=== PATIENT | male | born 1965 | race Two or more races ===

== ENCOUNTER 2018-07-05 18:28 | Inpatient (IN) | payer MEDICAID, OTHER ==
[~2018-07-05] VITALS: Ht 167.6 cm; Wt 78.5 kg
[~2018-07-05 18:28] MED LIST: ACET30TA15; IBU800T
[2018-07-05] MEDS ORDERED: SODIUM CHLORIDE 0.9% 1,000 ML IVB ONE (19:03)
[2018-07-05] MEDS ORDERED: MORPHINE SULFATE 4 MG/ML SYR/VIAL IV ONE (19:15)
[2018-07-05] MEDS ORDERED: ONDANSETRON HCL 4 MG/2 ML VIAL IV ONE (19:15)
[2018-07-05 19:35] LABS: Red Blood Cells 1.78 10^6/uL (4.5-5.90)
[2018-07-05 19:37] LABS: Hematocrit 18.2 % (41.0-53.0); Mean Corpuscular Hgb Conc. 35.1 g/dL (32.0-36.0); Mean Corpuscular Volume 102.6 fL (80.0-100.0); Red Cell Distribution Width 16.9 % (11.8-14.3); White Blood Cell 2.2 10^3/uL (4.4-10.8)
[2018-07-05 19:44] LABS: Alanine Aminotransferase 26 U/L (16-61); Albumin 3.1 g/dL (3.4-5.0); Anion Gap 9 (5-15); Aspartate Aminotransferase 18 U/L (15-37); BUN/Creatinine Ratio 13.1; Blood Urea Nitrogen 11 mg/dL (7-18); Calcium 8.3 mg/dL (8.5-10.1); Carbon Dioxide 24 mmol/L (21-32); Chloride 104 mmol/L (98-107); GFR African American 122 mL/min; GFR Non-African American 101 mL/min; Glucose 168 mg/dL (74-106); Magnesium 1.9 mg/dL (1.6-2.6); Potassium 3.8 mmol/L (3.5-5.1); Sodium 137 mmol/L (136-145)
[2018-07-05 19:49] LABS: Alkaline Phosphatase 77 U/L (45-117); Bilirubin, Total 0.4 mg/dL (0.2-1.0); Hemoglobin 6.4 g/dL (13.5-17.5); Platelet Count (auto) 12 10^3/uL (140-450); Total Protein 7.4 g/dL (6.4-8.2)
[2018-07-05 19:50] LABS: Band Neutrophils % (manual) 0; Basophils % (manual) 0 (0.0-2.0); Blast Cells 0; Eosinophils % (manual) 0 (0-7); Metamyelocytes % 0; Myelocytes % 0; Promyelocytes % 0; Reactive Lymphocytes 0
[2018-07-05 20:10] LABS: Lymphocytes % (manual) 71 (10.0-50.0); Monocytes % (manual) 5 (0-12)
[2018-07-05] MEDS ORDERED: ACETAMINOPHEN 325 MG TAB PO PRN (21:15)
[2018-07-05] MEDS ORDERED: NITROGLYCERIN 0.4 MG SL TAB SL PRN (21:15)
[2018-07-05] MEDS ORDERED: MORPHINE SULF INJ 2 MG/ML SYRINGE 1ML IV PRN (21:15)
[2018-07-05] MEDS ORDERED: HYDROcodone-ACET 5/325MG TAB PO PRN (21:15)
[2018-07-05] MEDS ORDERED: ONDANSETRON HCL 4 MG/2 ML VIAL IV PRN (21:15)
[2018-07-05] MEDS ORDERED: TEMAZEPAM 15 MG CAP PO PRN (21:15)
[2018-07-05] MEDS ORDERED: DEXTROSE (50%) 50ML SYRG IV PRN (21:15)
[2018-07-05 22:25] LABS: Urine WBC None Seen /hpf (0 - 3)
[2018-07-05] MEDS: FAMOTIDINE 20 MG TAB PO SCH (22:25)
[2018-07-05 22:55] LABS: Urine Bacteria NONE SEEN /hpf (None Seen); Urine Blood Negative /uL (Negative)
--- NOTE | 2018-07-05 23:00 | NUR ---
Telemetry admit from ER SIMI SAMUELS admitted to Telemetry unit. Patient oriented to Genie Medrano, primary RN, unit, room, bed, and unit policies regarding patient care and visiting hours. Patient now on continuous telemetry monitoring, tele box # [id number] and telemetry reading on arrival to unit is SR 90s . Patient's vs taken and recorded, weighed by bedscale and encouraged to call if they need something, call light within reach. POC reviewed with pt and pt's daughter. All questions and concerns addressed, both verbalized understanding. Side rails up x2, bed in lowest locked position, non skid socks on. Continue care. Note:
[2018-07-05] MEDS ORDERED: HALOPERIDOL LACTATE 5 MG/ML INJ VIAL IM ONE (23:15)
[2018-07-05 23:30] VITALS: BP 109/59
[2018-07-06] VITALS (15 sets, daily range): BP systolic 92–122; BP diastolic 46–73
--- NOTE | 2018-07-06 00:25 | NUR ---
PRBC STARTED, WILL MONITOR PT.
[2018-07-06] MEDS ORDERED: IBU600T PO (00:29)
[2018-07-06] MEDS ORDERED: HYDR1TAB97 PO (00:29)
[2018-07-06] MEDS: InsuLIN REG 1unit/0.01ml Soln (100units/ml) SC SCH ×4 (01:00→17:30)
[2018-07-06] MEDS: ACCU-CHEK COMFORT CURVE STRIP VI SCH ×4 (01:18→17:30)
--- NOTE | 2018-07-06 03:00 | NUR ---
PRBC DONE TRANSFUSING, NO REACTION NOTED. CONTINUE CARE.
--- NOTE | 2018-07-06 04:15 | NUR ---
PLT SPOKE TO CLAUDIA FROM LAB REGARDING PLT TYPE, PER CLAUDIA, PLTS ARE NON SPECIFIC.
--- NOTE | 2018-07-06 04:17 | NUR ---
PLT STARTED, WILL MONITOR PT.
--- NOTE | 2018-07-06 05:37 | NUR ---
AM LABS SPOKE TO ON SITE NURSE, HE MAY AM LABS ALREADY. CALLED LAB TO DISREGARD AM DRAW DUE TO PLT RUNNING AT THIS TIME. WILL CALL LAB ONCE TRANSFUSION IS COMPLETE FOR AM LAB DRAWS.
--- NOTE | 2018-07-06 05:49 | NUR ---
PT REFUSING INSULIN COVERAGE EXPLAINED TO PT, STILL REFUSING. PER PT, HE TAKES ONLY METFORMIN AT HOME. CONTINUE CARE.
--- NOTE | 2018-07-06 06:25 | NUR ---
PLT DONE TRANSFUSING NO REACTIONS NOTED. WILL ENDORSE TO DAY RN REGARDING CBC AND 1 HR POST TRANSFUSION VS TO BE DONE AT 0725. PT RESTING COMFORTABLY AT THIS TIME.
[2018-07-06 06:37] LABS: Calcium 7.5 mg/dL (8.5-10.1); Potassium 4.1 mmol/L (3.5-5.1)
[2018-07-06 06:42] LABS: Albumin 2.6 g/dL (3.4-5.0); BUN/Creatinine Ratio 14.6; Bilirubin, Total 0.6 mg/dL (0.2-1.0); Total Protein 6.4 g/dL (6.4-8.2)
--- NOTE | 2018-07-06 07:50 | NUR ---
Patient sitting in bed, awake, oriented x4. No acute distress noted.
[2018-07-06] MEDS: FAMOTIDINE 20 MG TAB PO SCH ×2 (09:53→22:23)
[2018-07-06 10:08] LABS: Platelet Count (auto) 21 10^3/uL (140-450)
[2018-07-06 10:10] LABS: Hematocrit 17.8 % (41.0-53.0); Mean Corpuscular Hemoglobin 34.8 pg (28.0-32.0); Mean Corpuscular Volume 99.3 fL (80.0-100.0); Red Blood Cells 1.79 10^6/uL (4.5-5.90); Red Cell Distribution Width 16.9 % (11.8-14.3)
[2018-07-06 10:31] LABS: White Blood Cell 1.9 10^3/uL (4.4-10.8)
[2018-07-06 10:35] LABS: Hemoglobin 6.2 g/dL (13.5-17.5)
[2018-07-06 10:36] LABS: Band Neutrophils % (manual) 0; Basophils % (manual) 0 (0.0-2.0); Blast Cells 0; Eosinophils % (manual) 0 (0-7); Metamyelocytes % 0; Myelocytes % 0; Promyelocytes % 0; Reactive Lymphocytes 0
--- NOTE | 2018-07-06 10:44 | NUR ---
Hemoglobin = 6.2*L as per Laboratory.
--- NOTE | 2018-07-06 10:46 | NUR ---
Paged Dr. Ley.
--- NOTE | 2018-07-06 10:47 | NUR ---
Dr. Ley called back. made aware patient latest Hgb = 6.2*L.
--- NOTE | 2018-07-06 11:42 | NUR ---
Accu check = 147 mg/dl. Patient refused Insulin R.
--- NOTE | 2018-07-06 11:43 | NUR ---
Dr. Ley came over to see the patient. put in new orders. Dr. Ley made aware patient refused Insulin R, patient stated he takes Metformin at home.
[2018-07-06 12:02] LABS: Lymphocytes % (manual) 76 (10.0-50.0); Monocytes % (manual) 8 (0-12)
--- NOTE | 2018-07-06 12:14 | NUR ---
Urine specimen sent to Laboratory.
[2018-07-06] MEDS ORDERED: IOHEXOL 300 MG/ML 100ML BOTTLE IJ ONE (12:28)
[2018-07-06] MEDS ORDERED: GASTROGRAFIN 30 ML SOL ONE (12:28)
--- NOTE | 2018-07-06 12:44 | NUR ---
Bone marrow biopsy tomorrow, , 07/07/2018 at [address] Barahona.
--- NOTE | 2018-07-06 12:44 | NUR ---
Dr. Barahona came over. ordered Pulmonary biopsy for tomorrow at 11:00 am. Addendum: 07/06/18 at 1707 by Malinda Blackwell RN Bone marrow biopsy
[2018-07-06 12:47] LABS: INR 1.03 (0.9-1.15); Partial Thromboplastin Time 26.5 sec (23.64-32.05); Prothrombin Time 11.1 sec (9.06-12.60)
[2018-07-06 12:53] LABS: Alcohol, Urine < 3.0 mg/dL (0-5); Amphetamine Screen, Urine NEGATIVE (NEGATIVE); Barbiturate Scree,Urine NEGATIVE (NEGATIVE); Benzodiazephine Screen, Urine NEGATIVE (NEGATIVE); Cannabinoid Screen, Urine NEGATIVE (NEGATIVE); Cocaine Screen, Urine NEGATIVE (NEGATIVE); Opiate Scree,Urine POSITIVE (NEGATIVE); Phencyclidine Screen, Urine NEGATIVE (NEGATIVE)
[2018-07-06 13:03] LABS: % Iron Saturation 70.3 % (20-55)
[2018-07-06] MEDS: methylPREDNISolone SOD SUCC 125 MG/2 ML VL IV SCH ×2 (13:28→17:32)
[2018-07-06 13:29] LABS: Ferritin 1023.4 ng/mL (10-322); Folate (Folic Acid) 13.17 ng/mL (5.38-24)
--- NOTE | 2018-07-06 16:57 | NUR ---
Blood transfusion (Packed RBCs) started. T = 98.5 F, P = 83, RR = 18, BP = 120/71, O2 Sat = 96% on room air.
--- NOTE | 2018-07-06 17:30 | NUR ---
Accu check = 258 mg/dl. Patient refused Insulin R. Solu Medrol IV held. Patient on blood transfusion.
--- NOTE | 2018-07-06 18:00 | NUR ---
Ongoing blood transfusion (Packed RBCs). No reaction noted. Patient eating dinner at this time.
--- NOTE | 2018-07-06 19:00 | NUR ---
Bone Marrow Biopsy Kit placed at the Non-fridge IV bin in the Medication Room.
--- NOTE | 2018-07-06 19:05 | NUR ---
Patient with on going blood transfusion, to be followed by the 2nd unit of Packed RBCs, and Platelet 1 unit as ordered.
--- NOTE | 2018-07-06 19:55 | NUR ---
Opening Shift Note Assumed care of patient, awake and alert. No S/S of distress/SOB or pain. First unit of PRBC completed. No blood transfusion reaction noted. Patient instructed to call for any possible blood transfusion reaction including but not limited to rash, itching, back pain, feeling warm, or any other symptoms. Patient verbalized understanding. Instructed on POC and to call for assist PRN, will continue to monitor for changes Q1hr and PRN.
--- NOTE | 2018-07-06 20:21 | NUR ---
Started to transfuse second unit of PRBC after verification with another RN. Patient instructed to call for any possible blood transfusion reaction including, but not limited to rash, itching, back pain, feeling warm, or any other symptoms. Patient verbalized understanding. Care continued.
--- NOTE | 2018-07-06 23:19 | NUR ---
Second unit of PRBC completed. No blood transfusion reaction noted. Care continued.
--- NOTE | 2018-07-06 23:26 | NUR ---
Started to transfuse platelet after verification with another RN, and after initial vital signs taken. Patient instructed to call for any possible blood transfusion reaction including, but not limited to rash, itching, back pain, feeling warm, or any other symptoms. Patient verbalized understanding. Care continued.
[2018-07-07] VITALS (8 sets, daily range): BP systolic 102–136; BP diastolic 61–81
[2018-07-07] MEDS: InsuLIN REG 1unit/0.01ml Soln (100units/ml) SC SCH ×5 (00:18→20:08)
[2018-07-07] MEDS: ACCU-CHEK COMFORT CURVE STRIP VI SCH ×5 (00:18→20:08)
[2018-07-07] MEDS: methylPREDNISolone SOD SUCC 125 MG/2 ML VL IV SCH ×4 (00:18→18:00)
--- NOTE | 2018-07-07 02:10 | NUR ---
Platelet transfusion completed. Patient tolerated procedure well. No blood transfusion reaction noted. Care continued.
[2018-07-07 04:57] LABS: Platelet Count (auto) 62 10^3/uL (140-450); White Blood Cell 2.1 10^3/uL (4.4-10.8)
[2018-07-07 04:59] LABS: Hematocrit 24.7 % (41.0-53.0); Hemoglobin 8.7 g/dL (13.5-17.5); Mean Corpuscular Hgb Conc. 35.2 g/dL (32.0-36.0); Red Blood Cells 2.63 10^6/uL (4.5-5.90); Red Cell Distribution Width 19.7 % (11.8-14.3)
[2018-07-07 05:12] LABS: Basophils % (manual) 0 (0.0-2.0); Eosinophils % (manual) 0 (0-7); Promyelocytes % 0; Reactive Lymphocytes 0
--- NOTE | 2018-07-07 07:00 | NUR ---
Opening Shift Note Assumed care of patient, awake, alert, and oriented x4. No S/S of distress/SOB, but patient reports generalized pain of 4/10. IV in left AC 18 gauge asymptomatic intact, patent, and saline locked. Bed locked and in lowest position and call light is within reach. Instructed on POC and to call for assist PRN, and patient verbalized understanding. Will continue to monitor for changes Q1hr and PRN.
[2018-07-07 09:40] LABS: Band Neutrophils % (manual) 3; Blast Cells 3; Lymphocytes % (manual) 58 (10.0-50.0); Metamyelocytes % 2; Monocytes % (manual) 3 (0-12); Myelocytes % 6
[2018-07-07] MEDS: FAMOTIDINE 20 MG TAB PO SCH ×2 (09:51→21:27)
--- NOTE | 2018-07-07 10:00 | NUR ---
Dr. Ley at bedside. New orders received.
--- NOTE | 2018-07-07 10:30 | NUR ---
Patient taken via wheelchair for hide-a-scan. No distress noted at time of departure.
--- NOTE | 2018-07-07 11:00 | NUR ---
[facility]. No distress noted at time of arrival.
[2018-07-07] MEDS ORDERED: LIDOCAINE 2% (LOCAL ANESTH.) PF 5ml SDV ONE (12:28)
--- NOTE | 2018-07-07 12:30 | NUR ---
Dr. Sharma, Lapel Padder Blindstitch, at bedside to perform Bone Marrow Biopsy. Patient tolerated well. No distress noted at time of the procedure. Will continue to monitor patient Q1.
[2018-07-07] MEDS ORDERED: MULTIPLE VITAMINS W/ MINERALS TAB PO ONE (15:45)
--- NOTE | 2018-07-07 18:10 | NUR ---
Glucose 418 Patient has blood sugar reading of 418. Paged the hospitalist. Dr. Snow, Hospitalist, returned page immediately with new orders. Will continue to monitor patient blood sugar and will recheck in 30 minutes after insulin administration.
[2018-07-07] MEDS ORDERED: InsuLIN REG 1unit/0.01ml Soln (100units/ml) IV ONE (18:15)
--- NOTE | 2018-07-07 18:47 | NUR ---
Glucose re-check 371
[2018-07-07] MEDS ORDERED: DEXTROSE (50%) 50ML SYRG IV PRN (19:00)
--- NOTE | 2018-07-07 20:00 | NUR ---
RECEIVED PT IN BED, A/O X4, IN NO ACUTE DISTRESS, DENIES PAIN. POC REVIEWED, VERBALIZED UNDERSTANDING, AWARE HE WILL BE NPO P MN FOR STRESS TEST IN AM. CALL LIGHT WITHIN REACH, ENCOURAGED TO CALL IF HELP IS NEEDED. SIDE RAILS UPX2, BED IN LOWEST LOCKED POSITION, NON SKID SOCKS ON. CONTINUE CARE.
[2018-07-07] MEDS: INSULIN LANTUS (GLARGINE) 1 /0.01ml (100units/ml) SC SCH (20:09)
--- NOTE | 2018-07-07 21:14 | NUR ---
IV insertion IV access obtained, via clean sterile technique by inserting 20 gauge catheter at R FA after 1 attempt(s)BY TERRI GAMEZ. IV secured properly. No trauma to site. Patient tolerated well. NOTE:
[2018-07-07] MEDS ORDERED: INSULIN LANTUS (GLARGINE) 1 /0.01ml (100units/ml) SC SCH (22:00)
[2018-07-08] MEDS: methylPREDNISolone SOD SUCC 125 MG/2 ML VL IV SCH ×4 (00:02→18:00)
[2018-07-08] MEDS: InsuLIN REG 1unit/0.01ml Soln (100units/ml) SC SCH ×5 (00:02→16:00)
[2018-07-08] MEDS: ACCU-CHEK COMFORT CURVE STRIP VI SCH ×5 (00:02→16:00)
[2018-07-08 04:02] VITALS: BP 114/71
[2018-07-08 05:19] LABS: Mean Corpuscular Volume 94.4 fL (80.0-100.0); White Blood Cell 2.9 10^3/uL (4.4-10.8)
[2018-07-08 05:21] LABS: Hematocrit 25.7 % (41.0-53.0); Mean Corpuscular Hemoglobin 32.9 pg (28.0-32.0); Mean Corpuscular Hgb Conc. 34.8 g/dL (32.0-36.0); Platelet Count (auto) 50 10^3/uL (140-450); Red Blood Cells 2.73 10^6/uL (4.5-5.90); Red Cell Distribution Width 19.3 % (11.8-14.3)
[2018-07-08 05:29] LABS: Basophils % (manual) 0 (0.0-2.0); Eosinophils % (manual) 0 (0-7); Metamyelocytes % 0; Myelocytes % 0; Promyelocytes % 0; Reactive Lymphocytes 0
--- NOTE | 2018-07-08 07:00 | NUR ---
Opening Shift Note Assumed care of patient, awake, alert, and oriented x4. No S/S of distress/SOB or pain. IV in left AC 18 gauge asymptomatic, intact, patent, and saline locked. IV in right forearm 20 gauge asymtomatic, intact, patent, and saline locked. Bed locked and in lowest position and call light is within reach. Instructed on POC and to call for assist PRN, and patient verbalized understanding. Will continue to monitor for changes Q1hr and PRN.
[2018-07-08 07:02] LABS: Band Neutrophils % (manual) 5; Blast Cells 3; Lymphocytes % (manual) 45 (10.0-50.0); Monocytes % (manual) 8 (0-12)
[2018-07-08] MEDS ORDERED: ADENOSINE 66 MG in GIVE UN-DILUTED 0 ML IV STA (08:28)
[2018-07-08 08:30] VITALS: BP 123/68
--- NOTE | 2018-07-08 08:30 | NUR ---
Patient taken down to stress lab via wheelchair. No distress noted at time of departure.
--- NOTE | 2018-07-08 09:30 | NUR ---
Patient returned from stress lab via wheelchair. No distress noted at time of arrival. Will continue to monitor patient Q1.
[2018-07-08] MEDS ORDERED: MULTIPLE VITAMINS W/ MINERALS TAB PO SCH (10:00)
--- NOTE | 2018-07-08 10:14 | NUR ---
Dr. Ley at bedside. New orders received.
[2018-07-08] MEDS: FAMOTIDINE 20 MG TAB PO SCH (10:16)
[2018-07-08] MEDS: INSULIN LANTUS (GLARGINE) 1 /0.01ml (100units/ml) SC SCH (10:16)
[2018-07-08] MEDS ORDERED: metFORMIN HYDROCHLORIDE 500 MG TAB PO ONE (10:30)
[2018-07-08] MEDS ORDERED: glipiZIDE 5 MG TAB PO ONE (10:30)
[2018-07-08] MEDS ORDERED: GLIP-115 PO (11:02)
[2018-07-08] MEDS ORDERED: PANT40TA2 PO (11:02)
[2018-07-08] MEDS ORDERED: METF500T PO (11:02)
[2018-07-08] MEDS ORDERED: PRE5T PO (11:02)
[2018-07-08 12:51] VITALS: BP 117/72
--- NOTE | 2018-07-08 15:00 | NUR ---
Dr. Chandler, Equipment Maintenance Tech, cleared patient for discharge.
[2018-07-08 16:44] VITALS: BP 117/72
[2018-07-08 16:53] VITALS: BP 116/69
[2018-07-08] MEDS ORDERED: metFORMIN HYDROCHLORIDE 500 MG TAB PO SCH (18:00)
--- NOTE | 2018-07-08 18:31 | NUR ---
Discharge instructions given as ordered. Encourage to follow up with PMD as instructed. All questions and concerns addressed. Patient verbalized understanding. Medication reconciliation form completed and copy given to patient. IV removed with catheter intact, pressure dressing applied. Telemetry unit returned to [facility]. Patient taken to vehicle via wheelchair with all personal belongings, accompanied by staff and family member. No distress noted at time of departure.
[2018-07-09] MEDS ORDERED: glipiZIDE 5 MG TAB PO SCH (07:00)
== END 2018-07-08 18:00 | disposition home or self-care (01) | DRG 803 ==
LOC: EDBD 18:28 → ER 18:48 → TELE 21:15 → TELE-WESTW 23:00
PROVIDERS: ADMIT Nurse Practitioner; ATTEND Internal Medicine
PROC: 30233R1 Transfusion of Nonautologous Platelets into Peripheral Vein, Percutaneous Approach (ICD-10-PCS; 2018-07-06)
PROC: 30233N1 Transfusion of Nonautologous Red Blood Cells into Peripheral Vein, Percutaneous Approach (ICD-10-PCS; 2018-07-06)
PROC: 07DR3ZX Extraction of Iliac Bone Marrow, Percutaneous Approach, Diagnostic (ICD-10-PCS; principal; 2018-07-07)
PROC: 0QB33ZX Excision of Left Pelvic Bone, Percutaneous Approach, Diagnostic (ICD-10-PCS; 2018-07-07)
DX: D61.818 Other pancytopenia (principal); E44.0 Moderate protein-calorie malnutrition; E11.9 Type 2 diabetes mellitus without complications; E78.00 Pure hypercholesterolemia, unspecified; M54.5 Low back pain; F10.10 Alcohol abuse, uncomplicated; G89.29 Other chronic pain; E78.5 Hyperlipidemia, unspecified; I10 Essential (primary) hypertension; Z82.49 Family history of ischemic heart disease and other diseases of the circulatory system; Z83.3 Family history of diabetes mellitus; Z68.27 Body mass index [BMI] 27.0-27.9, adult; Z79.84 Long term (current) use of oral hypoglycemic drugs; Z79.899 Other long term (current) drug therapy; Z80.9 Family history of malignant neoplasm, unspecified
CPT/HCPCS: 36415; 71045; 72131; 74177; 78226; 78452; 80053; 80307; 81001; 82270; 82607; 82728; 82746; 82962; 83010; 83036; 83540; 83550; 83615; 83735; 84484; 85007; 85027; 85610; 85730; 86850; 86880; 86900; 86901; 86920; 93005; 93017; 93306; 94761; 99291; G0378; J0153; J1815; J2001; J2405

== ENCOUNTER 2018-09-06 16:16 | Emergency (ER) | payer MEDICAID ==
[~2018-09-06] VITALS: Ht 165.1 cm; Wt 72.1 kg
[~2018-09-06 16:16] MED LIST changes: -ACET30TA15; +GLIP5TAB12 PO; -IBU800T; +METF500T PO; +PANT40TA2 PO
[2018-09-06 18:07] LABS: Hemoglobin 9.1 g/dL (13.5-17.5); Red Blood Cells 3.08 10^6/uL (4.5-5.90)
[2018-09-06 18:08] LABS: Calcium 8.3 mg/dL (8.5-10.1); Potassium 4.1 mmol/L (3.5-5.1)
[2018-09-06 18:11] LABS: BUN/Creatinine Ratio 20.2; Bilirubin, Total 0.2 mg/dL (0.2-1.0); Hematocrit 25.6 % (41.0-53.0); Mean Corpuscular Hemoglobin 29.5 pg (28.0-32.0); Mean Corpuscular Hgb Conc. 35.5 g/dL (32.0-36.0); Mean Corpuscular Volume 83.2 fL (80.0-100.0); Red Cell Distribution Width 14.2 % (11.8-14.3); Total Protein 6.9 g/dL (6.4-8.2)
[2018-09-06 18:49] LABS: INR < 0.93 (0.9-1.15); Partial Thromboplastin Time 26.9 sec (23.64-32.05)
[2018-09-06 19:08] LABS: Band Neutrophils % (manual) 0; Basophils % (manual) 0 (0.0-2.0); Blast Cells 0; Eosinophils % (manual) 0 (0-7); Metamyelocytes % 0; Myelocytes % 0; Platelet Count (auto) 5 10^3/uL (140-450); Promyelocytes % 0; Reactive Lymphocytes 0; White Blood Cell 1.3 10^3/uL (4.4-10.8)
[2018-09-06 19:09] LABS: Lymphocytes % (manual) 73 (10.0-50.0); Monocytes % (manual) 3 (0-12)
[2018-09-06] MEDS ORDERED: ONDANSETRON HCL 4 MG/2 ML VIAL IV PRN (20:30)
[2018-09-06] MEDS ORDERED: ACETAMINOPHEN 325 MG TAB PO PRN (20:30)
[2018-09-06] MEDS ORDERED: FILGRASTIM(TBO) 480 MCG/0.8 ML SYRG SC ONE (20:30)
[2018-09-06] MEDS ORDERED: TEMAZEPAM 15 MG CAP PO PRN (20:30)
[2018-09-06] MEDS ORDERED: FAMOTIDINE 20 MG TAB PO SCH (22:00)
[2018-09-06 22:02] VITALS: BP 106/44
[2018-09-06 22:25] VITALS: BP 101/60
[2018-09-07 00:15] VITALS: BP 99/55
[2018-09-07 00:54] VITALS: BP 89/46
[2018-09-07 01:13] VITALS: BP 95/59
[2018-09-07 03:00] VITALS: BP 98/54
[2018-09-07 03:25] LABS: Basophils # (auto) 0 uL; Eosinophils # (auto) 0 uL; Hematocrit 23.9 % (41.0-53.0); Lymphocytes # (auto) 0.6 uL; Monocytes # (auto) 0 uL; Neutrophils # (auto) 0.3 uL
[2018-09-07 03:26] LABS: Basophils % (auto) 2.1 % (0.0-2.0); Eosinophils % (auto) 2.4 % (0.0-7.0); Hemoglobin 8.3 g/dL (13.5-17.5); Mean Corpuscular Hemoglobin 28.9 pg (28.0-32.0); Mean Corpuscular Hgb Conc. 34.8 g/dL (32.0-36.0); Mean Corpuscular Volume 83.1 fL (80.0-100.0); Monocytes % (auto) 1.4 % (0.0-12.0); Neutrophils % (auto) 33.4 % (37.0-80.0); Nucleated Red Blood Cells % 0.2 %; Platelet Count (auto) 51 10^3/uL (140-450); Red Blood Cells 2.87 10^6/uL (4.5-5.90)
[2018-09-07 03:37] LABS: Lymphocytes % (auto) 60.7 % (10.0-50.0)
== END 2018-09-07 04:09 | disposition home or self-care (01) ==
LOC: ER 16:19 → OVERFLOW 16:20 → UNDOADMIN 16:20 → ER 09-07 04:09
DX: D69.6 Thrombocytopenia, unspecified (principal); D72.819 Decreased white blood cell count, unspecified; D64.9 Anemia, unspecified; E11.9 Type 2 diabetes mellitus without complications; E78.5 Hyperlipidemia, unspecified; I10 Essential (primary) hypertension; Z79.84 Long term (current) use of oral hypoglycemic drugs
CPT/HCPCS: 36415; 36430; 80053; 85007; 85025; 85027; 85610; 85730; 86850; 86900; 86901; 96372; 99285; J1447; P9035

== ENCOUNTER 2018-09-29 16:54 | Inpatient (IN) | payer MEDICAID ==
[~2018-09-29] VITALS: Ht 165.1 cm; Wt 71.4 kg
[2018-09-29] MEDS ORDERED: ACETAMINOPHEN 325 MG TAB PO ONE (17:15)
[2018-09-29] MEDS ORDERED: SODIUM CHLORIDE 0.9% 500 ML IV ONE (18:05)
[2018-09-29 18:24] LABS: Basophils # (auto) 0 uL; Eosinophils # (auto) 0 uL; Hemoglobin 8.2 g/dL (13.5-17.5); Lymphocytes # (auto) 0.6 uL; Monocytes # (auto) 0 uL; Monocytes % (auto) 0.2 % (0.0-12.0); Neutrophils # (auto) 0 uL; Red Cell Distribution Width 13.4 % (11.8-14.3)
[2018-09-29 18:26] LABS: Mean Corpuscular Hemoglobin 29.1 pg (28.0-32.0); Mean Corpuscular Hgb Conc. 35.5 g/dL (32.0-36.0); Mean Corpuscular Volume 81.9 fL (80.0-100.0); Neutrophils % (auto) 1.5 % (37.0-80.0); Platelet Count (auto) 56 10^3/uL (140-450); Red Blood Cells 2.81 10^6/uL (4.5-5.90)
[2018-09-29 18:42] LABS: Lymphocytes % (auto) 98.3 % (10.0-50.0)
[2018-09-29 18:43] LABS: White Blood Cell 0.7 10^3/uL (4.4-10.8)
[2018-09-29 18:45] LABS: Albumin 2.7 g/dL (3.4-5.0); BUN/Creatinine Ratio 14.1; Calcium 8.9 mg/dL (8.5-10.1)
[2018-09-29 18:47] LABS: Bilirubin, Total 0.3 mg/dL (0.2-1.0); Total Protein 7.4 g/dL (6.4-8.2)
[2018-09-29 20:53] LABS: Urine Bacteria NONE SEEN /hpf (None Seen); Urine Blood Negative /uL (Negative); Urine Specific Gravity 1.014 (1.001-1.035); Urine WBC <1 /hpf (0 - 3)
[2018-09-29] MEDS ORDERED: ONDANSETRON HCL 4 MG/2 ML VIAL IV PRN (21:30)
[2018-09-29] MEDS ORDERED: HYDROcodone-ACET 5/325MG TAB PO PRN (21:30)
[2018-09-29] MEDS ORDERED: DEXTROSE (50%) 50ML SYRG IV PRN (21:30)
[2018-09-29] MEDS: DOCUSATE SOD 100 MG CAP PO SCH (22:05)
[2018-09-29] MEDS: ACCU-CHEK COMFORT CURVE STRIP VI SCH (22:09)
[2018-09-29] MEDS: InsuLIN REG 1unit/0.01ml Soln (100units/ml) SC SCH (22:18)
[2018-09-29 22:20] VITALS: BP 104/53
--- NOTE | 2018-09-29 22:25 | NUR ---
MS admit from ER Patient admitted to tele/MS and oriented to primary RN, unit, room, bed, and unit policies regarding patient care and visiting hours. Neutropenic precautions in place. Patient weighed by bedscale and encouraged to call if they need something. Bed is in lowest position and locked. Call light within reach. Board updated. All questions and concerns addressed, patient verbalized understanding.
[2018-09-29 22:30] VITALS: BP 104/53
[2018-09-30] MEDS ORDERED: LEVO500T21 PO (01:25)
[2018-09-30] MEDS ORDERED: DOCU100T15 PO (01:25)
[2018-09-30] MEDS ORDERED: PRO10T PO (01:25)
[2018-09-30] MEDS ORDERED: ALLO-52 PO (01:25)
[2018-09-30] MEDS ORDERED: FLUC200T50 PO (01:25)
[2018-09-30] MEDS ORDERED: OXYC325T14 PO (01:25)
[2018-09-30] MEDS ORDERED: HYDR-3682 PO (01:25)
[2018-09-30] MEDS ORDERED: [UNRECOGNIZED DRUG - CODE] IV (01:25)
[2018-09-30] MEDS: ACETAMINOPHEN 325 MG TAB PO PRN ×3 (04:12→21:26)
[2018-09-30 05:22] VITALS: BP 115/51
[2018-09-30 06:17] LABS: Basophils # (auto) 0 uL; Eosinophils # (auto) 0 uL; Hemoglobin 7.7 g/dL (13.5-17.5); Lymphocytes # (auto) 0.7 uL; Monocytes # (auto) 0 uL; Monocytes % (auto) 0.1 % (0.0-12.0); Neutrophils # (auto) 0 uL
[2018-09-30 06:19] LABS: Eosinophils % (auto) 0.1 % (0.0-7.0); Hematocrit 21.9 % (41.0-53.0); Mean Corpuscular Hemoglobin 28.8 pg (28.0-32.0); Mean Corpuscular Hgb Conc. 35.3 g/dL (32.0-36.0); Mean Corpuscular Volume 81.7 fL (80.0-100.0); Neutrophils % (auto) 0.7 % (37.0-80.0); Nucleated Red Blood Cells % 0.3 %; Platelet Count (auto) 48 10^3/uL (140-450); Red Blood Cells 2.68 10^6/uL (4.5-5.90); Red Cell Distribution Width 13.6 % (11.8-14.3)
[2018-09-30] MEDS: ACCU-CHEK COMFORT CURVE STRIP VI SCH ×4 (06:21→21:48)
[2018-09-30] MEDS: InsuLIN REG 1unit/0.01ml Soln (100units/ml) SC SCH ×4 (06:21→21:47)
[2018-09-30 06:26] LABS: BUN/Creatinine Ratio 13.3; Calcium 8.5 mg/dL (8.5-10.1); Potassium 3.8 mmol/L (3.5-5.1)
[2018-09-30 06:27] LABS: Lymphocytes % (auto) 99.1 % (10.0-50.0)
[2018-09-30 06:29] LABS: White Blood Cell 0.7 10^3/uL (4.4-10.8)
--- NOTE | 2018-09-30 07:30 | NUR ---
Opening Note Received report from mold shifter RN. Patient is resting in bed with eyes closed, easy to wake by calling name. Patient is on room air, respirations even and unlabored. Patient denies pain at this time. Reviewed plan of care with patient, patient verbalized understanding. Bed in low and locked position, call light within reach. Will continue to monitor Q1 hour and PRN.
[2018-09-30 09:00] VITALS: BP 102/62
[2018-09-30] MEDS: DOCUSATE SOD 100 MG CAP PO SCH ×2 (09:18→21:27)
[2018-09-30] MEDS: PANTOPRAZOLE 40 MG TAB PO SCH (09:19)
[2018-09-30] MEDS ORDERED: ACYCLOVIR 400 MG TAB PO SCH (10:00)
[2018-09-30] MEDS ORDERED: VANCOMYCIN PER PHARMACY 0 MG IV SCH (10:00)
[2018-09-30] MEDS ORDERED: FLUCONAZOLE 100 MG TAB PO SCH (10:00)
[2018-09-30] MEDS ORDERED: LEVOFLOXACIN 500 MG TAB PO SCH (10:00)
[2018-09-30] MEDS ORDERED: VANCOMYCIN 1GM/250ML 250 ML IV ONE (10:15)
--- NOTE | 2018-09-30 12:04 | NUR ---
Dr. Donnelly at bedside Reviewing plan of care with patient.
--- NOTE | 2018-09-30 12:33 | NUR ---
Temperature patient temperature 100.2, will medicate with PRN Tylenol as ordered. Will continue to monitor Q1 hour and PRN.
[2018-09-30] MEDS: SODIUM CHLORIDE 0.9% 1,000 ML IV SCH (12:42)
[2018-09-30] MEDS: PIPERACILLIN-TAZO 4.5GM 100 ML IV SCH ×2 (12:42→17:56)
[2018-09-30 13:00] VITALS: BP 100/67
[2018-09-30] MEDS ORDERED: FILGRASTIM(TBO) 480 MCG/0.8 ML SYRG SC ONE (13:30)
[2018-09-30 17:00] VITALS: BP 114/63
--- NOTE | 2018-09-30 19:14 | NUR ---
Opening Shift Note Assumed care of patient, awake, alert, and oriented x4. No S/S of distress/SOB or pain. IV is in left forearm 20 gauge and is asymptomatic, intact, patent, and infusing normal saline at 75 mL/hour. Bed is locked and in lowest position and call light is within reach. Instructed on POC and to call for assist PRN, and patient verbalized understanding. Will continue to monitor for changes Q1hr and PRN.
--- NOTE | 2018-09-30 19:22 | NUR ---
Closing Note Report given to television repairer RN. No signs or symptoms of distress noted at this time.
--- NOTE | 2018-09-30 19:45 | NUR ---
Patient reports severe Benadryl allergy; red allergy band is on left wrist. No distress noted at this time. Will continue to monitor Q1.
[2018-09-30 21:20] VITALS: BP 101/56
--- NOTE | 2018-09-30 21:20 | NUR ---
AMERICAN HISTORY TEACHER reported patient has oral temperature of 102.7. Initiated cooling measures; placed ice packs underneath both arms, wet cloths on forehead and back of neck, and administered ordered Tylenol PO. Will continue to monitor temperature Q30 minutes.
[2018-09-30] MEDS: VANCOMYCIN 1GM/250ML 250 ML IV SCH (21:25)
--- NOTE | 2018-09-30 21:51 | NUR ---
Patient blood sugar is 193. Covered with 3 units Regular insulin SC.
--- NOTE | 2018-09-30 22:25 | NUR ---
Oral temperature at 101.4. Will reassess in 30 minutes.
--- NOTE | 2018-09-30 22:47 | NUR ---
Oral temperature is 100.9.
[2018-10-01] MEDS: PIPERACILLIN-TAZO 4.5GM 100 ML IV SCH ×4 (00:28→17:30)
[2018-10-01] MEDS: SODIUM CHLORIDE 0.9% 1,000 ML IV SCH ×2 (01:35→14:55)
[2018-10-01] MEDS: ACETAMINOPHEN 325 MG TAB PO PRN ×3 (04:13→21:00)
[2018-10-01 05:16] VITALS: BP 105/42
[2018-10-01 05:29] LABS: Hemoglobin 7.8 g/dL (13.5-17.5)
[2018-10-01 05:32] LABS: Hematocrit 21.8 % (41.0-53.0); Mean Corpuscular Hemoglobin 29.3 pg (28.0-32.0); Mean Corpuscular Hgb Conc. 35.9 g/dL (32.0-36.0); Mean Corpuscular Volume 81.6 fL (80.0-100.0); Platelet Count (auto) 36 10^3/uL (140-450); Red Blood Cells 2.67 10^6/uL (4.5-5.90); Red Cell Distribution Width 13.5 % (11.8-14.3)
[2018-10-01 05:36] LABS: Potassium 3.6 mmol/L (3.5-5.1)
[2018-10-01 05:44] LABS: White Blood Cell 0.8 10^3/uL (4.4-10.8)
[2018-10-01 05:45] LABS: Albumin 2.5 g/dL (3.4-5.0); BUN/Creatinine Ratio 11.3; Bilirubin, Total 0.4 mg/dL (0.2-1.0); Calcium 8.8 mg/dL (8.5-10.1)
[2018-10-01 05:46] LABS: Basophils % (manual) 0 (0.0-2.0); Blast Cells 0; Eosinophils % (manual) 0 (0-7); Metamyelocytes % 0; Myelocytes % 0; Promyelocytes % 0
[2018-10-01 06:31] LABS: Band Neutrophils % (manual) 2; Lymphocytes % (manual) 90 (10.0-50.0); Monocytes % (manual) 2 (0-12); Reactive Lymphocytes 2
[2018-10-01] MEDS: InsuLIN REG 1unit/0.01ml Soln (100units/ml) SC SCH ×4 (06:38→22:16)
[2018-10-01] MEDS: ACCU-CHEK COMFORT CURVE STRIP VI SCH ×4 (06:38→22:16)
--- NOTE | 2018-10-01 07:34 | NUR ---
Temp Abundio The patient's temperature increased again to 102.7 when assess at 0400hrs. Gave the patient Tylenol and waited for an hour to reassess, temp decreased to 100.7. Began cooling measures to further lower the temp. Placed ice packs under the arm pits, after reassessing the temp decreased to 98.5. Will continue to monitor.
--- NOTE | 2018-10-01 07:45 | NUR ---
OPENING SHIFT NOTE PATIENT LAYING IN BED WITH EYES CLOSED CHEST RISE AND FALL VISUALIZED SHOWING NO S/S OF DISTRESS OR SOB. BOARD UPDATED. BED IN LOWEST LOCKED POSITION CALL LIGHT WITHIN REACH WILL CONTINUE TO MONITOR
[2018-10-01 09:00] VITALS: BP 107/57
[2018-10-01] MEDS: PANTOPRAZOLE 40 MG TAB PO SCH (09:20)
[2018-10-01] MEDS: DOCUSATE SOD 100 MG CAP PO SCH ×2 (09:20→22:16)
[2018-10-01] MEDS: ACYCLOVIR 400 MG TAB PO SCH (09:20)
[2018-10-01] MEDS: FILGRASTIM(TBO) 480 MCG/0.8 ML SYRG SC SCH (09:21)
[2018-10-01] MEDS: VANCOMYCIN 1GM/250ML 250 ML IV SCH ×2 (09:22→22:31)
[2018-10-01 13:00] VITALS: BP 101/59
[2018-10-01 16:56] VITALS: BP 115/62
--- NOTE | 2018-10-01 19:05 | NUR ---
END OF SHIFT NOTE PATIENT AWAKE ALERT AND ORIENTED X4 SITTING UP EATING. DENIES PAIN SOB OR ANY DISTRESS. BED IN LOWEST LOCKED POSITION CALL LIGHT WITHIN REACH. ENDORSE CARE TO NOC RN
--- NOTE | 2018-10-01 19:10 | NUR ---
Opening Shift Note Received report from Ayse GAMEZ. Assumed care of patient, awake and alert. No S/S of distress/SOB or pain. Instructed on POC and to call for assist PRN, will continue to monitor for changes Q1hr and PRN.
[2018-10-01 21:00] VITALS: BP 130/72
[2018-10-02] MEDS: PIPERACILLIN-TAZO 4.5GM 100 ML IV SCH ×4 (00:06→18:00)
[2018-10-02 04:30] VITALS: BP 100/52
[2018-10-02] MEDS: SODIUM CHLORIDE 0.9% 1,000 ML IV SCH ×2 (04:39→17:35)
[2018-10-02 05:16] LABS: Hemoglobin 7.6 g/dL (13.5-17.5); Platelet Count (auto) 25 10^3/uL (140-450); Red Cell Distribution Width 13.5 % (11.8-14.3)
[2018-10-02 05:22] LABS: Hematocrit 21.1 % (41.0-53.0); Mean Corpuscular Hemoglobin 29.1 pg (28.0-32.0); Mean Corpuscular Volume 80.8 fL (80.0-100.0); Red Blood Cells 2.61 10^6/uL (4.5-5.90)
[2018-10-02 05:35] LABS: White Blood Cell 0.7 10^3/uL (4.4-10.8)
[2018-10-02 05:36] LABS: Band Neutrophils % (manual) 0; Basophils % (manual) 0 (0.0-2.0); Blast Cells 0; Eosinophils % (manual) 0 (0-7); Metamyelocytes % 0; Myelocytes % 0; Promyelocytes % 0; Reactive Lymphocytes 0
[2018-10-02 05:46] LABS: BUN/Creatinine Ratio 10.8; Calcium 8.6 mg/dL (8.5-10.1); Magnesium 2.5 mg/dL (1.6-2.6); Potassium 3.7 mmol/L (3.5-5.1)
[2018-10-02] MEDS: ACETAMINOPHEN 325 MG TAB PO PRN (06:10)
[2018-10-02] MEDS: ACCU-CHEK COMFORT CURVE STRIP VI SCH ×4 (06:36→21:51)
[2018-10-02] MEDS: InsuLIN REG 1unit/0.01ml Soln (100units/ml) SC SCH ×4 (06:37→21:52)
--- NOTE | 2018-10-02 07:24 | NUR ---
Latest temp is 99.1. Endorsed care to Ayse GAMEZ.
--- NOTE | 2018-10-02 07:35 | NUR ---
OPENING SHIFT NOTE PATIENT LAYING IN BED WITH EYES CLOSED CHEST RISE AND FALL VISUALIZED SHOWING NO S/S OF DISTRESS OR SOB. ICE PACKS UNDERARMS AND COOL WASH CLOTH ON FOREHEAD. BOARD UPDATED. BED IN LOWEST LOCKED POSITION CALL LIGHT WITHIN REACH WILL CONTINUE TO MONITOR
[2018-10-02 08:51] LABS: Lymphocytes % (manual) 99 (10.0-50.0); Monocytes % (manual) 1 (0-12)
[2018-10-02 09:00] VITALS: BP 95/50
[2018-10-02] MEDS: PANTOPRAZOLE 40 MG TAB PO SCH (10:03)
[2018-10-02] MEDS: DOCUSATE SOD 100 MG CAP PO SCH ×2 (10:03→21:51)
[2018-10-02] MEDS: ACYCLOVIR 400 MG TAB PO SCH (10:03)
[2018-10-02] MEDS: VANCOMYCIN 1GM/250ML 250 ML IV SCH ×2 (10:03→18:24)
[2018-10-02] MEDS: FILGRASTIM(TBO) 480 MCG/0.8 ML SYRG SC SCH (10:05)
[2018-10-02 13:00] VITALS: BP 106/59
[2018-10-02 17:00] VITALS: BP 102/63
[2018-10-02 18:12] LABS: Basophils # (auto) 0 uL; Eosinophils # (auto) 0 uL; Lymphocytes # (auto) 0.6 uL; Monocytes # (auto) 0 uL; Neutrophils # (auto) 0 uL; Neutrophils % (auto) 0.2 % (37.0-80.0)
[2018-10-02 18:14] LABS: Hematocrit 20.9 % (41.0-53.0); Hemoglobin 7.4 g/dL (13.5-17.5); Mean Corpuscular Hemoglobin 28.9 pg (28.0-32.0); Mean Corpuscular Hgb Conc. 35.5 g/dL (32.0-36.0); Mean Corpuscular Volume 81.6 fL (80.0-100.0); Monocytes % (auto) 0.4 % (0.0-12.0); Nucleated Red Blood Cells % 0.2 %; Red Blood Cells 2.56 10^6/uL (4.5-5.90); Red Cell Distribution Width 13.3 % (11.8-14.3)
--- NOTE | 2018-10-02 18:14 | NUR ---
CRITICAL LAB VALUE RECEIVED PATIENT WBC 0.7 AND PLATELET 22. PAGED
[2018-10-02 18:20] LABS: Lymphocytes % (auto) 99.4 % (10.0-50.0)
[2018-10-02 18:23] LABS: Platelet Count (auto) 22 10^3/uL (140-450); White Blood Cell 0.7 10^3/uL (4.4-10.8)
--- NOTE | 2018-10-02 18:40 | NUR ---
CALLED BACK. ORDERED FOR CBC AND BMP LAB DRAWS IN AM
--- NOTE | 2018-10-02 19:10 | NUR ---
END OF SHIFT NOTE PATIENT ALERT AND ORIENTED X4 DENIES ANY PAIN SOB OR DISTRESS BED IN LOWEST LOCKED POSITION CALL LIGHT WITHIN REACH ENDORSE CARE TO NOC RN
--- NOTE | 2018-10-02 19:15 | NUR ---
Opening Shift Note Received report from Ayse GAMEZ. Assumed care of patient, awake and alert, family at bedside. No S/S of distress/SOB or pain. Instructed on POC and to call for assist PRN, will continue to monitor for changes Q1hr and PRN.
[2018-10-02 20:21] LABS: Calcium 8.3 mg/dL (8.5-10.1); Potassium 3.8 mmol/L (3.5-5.1)
[2018-10-02 20:26] LABS: BUN/Creatinine Ratio 10.5
[2018-10-02 21:00] VITALS: BP 140/59
[2018-10-03] VITALS (12 sets, daily range): BP systolic 96–114; BP diastolic 52–64
[2018-10-03] MEDS: PIPERACILLIN-TAZO 4.5GM 100 ML IV SCH ×5 (00:01→23:59)
[2018-10-03] MEDS: VANCOMYCIN 1GM/250ML 250 ML IV SCH ×3 (02:21→18:55)
[2018-10-03 06:00] LABS: Basophils # (auto) 0 uL; Eosinophils # (auto) 0 uL; Lymphocytes # (auto) 0.8 uL; Monocytes # (auto) 0 uL; Neutrophils # (auto) 0 uL; Neutrophils % (auto) 0.3 % (37.0-80.0)
[2018-10-03 06:04] LABS: Eosinophils % (auto) 0.1 % (0.0-7.0); Hematocrit 14.8 % (41.0-53.0); Mean Corpuscular Hemoglobin 29.7 pg (28.0-32.0); Mean Corpuscular Hgb Conc. 36.5 g/dL (32.0-36.0); Mean Corpuscular Volume 81.3 fL (80.0-100.0); Monocytes % (auto) 0.4 % (0.0-12.0); Nucleated Red Blood Cells % 0.4 %; Red Blood Cells 1.82 10^6/uL (4.5-5.90); Red Cell Distribution Width 13.3 % (11.8-14.3)
[2018-10-03 06:13] LABS: Lymphocytes % (auto) 99.2 % (10.0-50.0)
[2018-10-03 06:15] LABS: Hemoglobin 5.4 g/dL (13.5-17.5); Platelet Count (auto) 18 10^3/uL (140-450); White Blood Cell 0.8 10^3/uL (4.4-10.8)
--- NOTE | 2018-10-03 06:28 | NUR ---
Received critical lab values: WBC 0.8, Hgb 5.4, Platelet 18. Hospitalist paged, awaiting for call back.
[2018-10-03] MEDS: ACCU-CHEK COMFORT CURVE STRIP VI SCH ×4 (06:49→21:59)
[2018-10-03] MEDS: InsuLIN REG 1unit/0.01ml Soln (100units/ml) SC SCH ×4 (06:51→22:00)
[2018-10-03] MEDS: SODIUM CHLORIDE 0.9% 1,000 ML IV SCH ×2 (06:51→21:43)
--- NOTE | 2018-10-03 06:53 | NUR ---
Hospitalist Timothy called back with order to transfuse 1 unit of Packed RBC. Order carried out and followed through.
--- NOTE | 2018-10-03 07:21 | NUR ---
Care endorsed to Kay GAMEZ.
[2018-10-03] MEDS: ACYCLOVIR 400 MG TAB PO SCH (08:44)
[2018-10-03] MEDS: DOCUSATE SOD 100 MG CAP PO SCH ×2 (08:44→21:43)
[2018-10-03] MEDS: PANTOPRAZOLE 40 MG TAB PO SCH (08:44)
--- NOTE | 2018-10-03 12:26 | NUR ---
I faxed higher level of care order to [facility].
--- NOTE | 2018-10-03 13:39 | NUR ---
NUCLEAR MED CALLED, PER JOSE MCDONALD TECH HIDA SCAN WILL NOT BE DONE TODAY, MAYBE TOMORROW MORNING.
--- NOTE | 2018-10-03 14:48 | NUR ---
Nutrition Assessment Notes please see attached link for complete assessment Est. Needs BW (65 kg): 625-1950 kcal (25-30 kcal/kgBW), 65-78 gms pro (1.0-1.2 gms/kgBW). Will continue to monitor pertinent labs and reassess nutrient need prn Addendum: 10/03/18 at [address] Amended: Links added.
--- NOTE | 2018-10-03 15:29 | NUR ---
I faxed higher level of care order to [facility], requesting authorization for transfer as well as for transportation.
--- NOTE | 2018-10-03 16:28 | NUR ---
I called [facility] transfer center [phone] regarding the transfer of this patient-Annalise to give me a call back. I also called [facility] Channel Development Director Kenia [phone] and left a message asking for authorization for Latrice Slaughter as well as for transportation.
--- NOTE | 2018-10-03 17:04 | NUR ---
I placed [facility] on will call pending transfer to [facility] ([facility] auth [id number]----[id number] auth [id number]).
--- NOTE | 2018-10-03 20:00 | NUR ---
OPENING SHIFT NOTE: PATIENT RESTING IN BED. HE IS A0X4 AND AMBULATORY BY HIMSELF. HIS BED IS SHELLY DIN THE LOWEST POSITION WITH SIDE RAILS UP X2. HE UNDERSTANDS HIS PLAN OF CARE AND IS AWARE OF POSSIBLE TRANSFER TO [facility]. CALL LIGHT IS WITHIN REACH. WILL CONTINUE TO MONITOR.
--- NOTE | 2018-10-03 21:04 | NUR ---
STARTED THE 1ST UNIT OF PLATELETS.
[2018-10-04] VITALS (10 sets, daily range): BP systolic 102–126; BP diastolic 54–73
--- NOTE | 2018-10-04 00:40 | NUR ---
THE 1ST UNIT OF PLATELETS FINISHED. NO TRANSFUSION REACTION WAS SUSPECTED.
--- NOTE | 2018-10-04 01:24 | NUR ---
STARTED 2ND PLATELET TRANSFUSION.
[2018-10-04] MEDS: VANCOMYCIN 1GM/250ML 250 ML IV SCH ×3 (02:55→17:37)
[2018-10-04] MEDS: ACYCLOVIR 400 MG TAB PO SCH (09:01)
[2018-10-04] MEDS: DOCUSATE SOD 100 MG CAP PO SCH ×2 (09:01→22:09)
[2018-10-04] MEDS: PANTOPRAZOLE 40 MG TAB PO SCH (09:01)
[2018-10-04] MEDS: FILGRASTIM(TBO) 480 MCG/0.8 ML SYRG SC SCH (09:03)
[2018-10-04] MEDS: SODIUM CHLORIDE 0.9% 1,000 ML IV SCH (09:35)
--- NOTE | 2018-10-04 10:11 | NUR ---
I called [facility] transfer center [phone] and spoke with Qselqvi-ar-pxipr her clinical information as requested-provided her with contact information for Dr. Donnelly as well as the nurse's station.
[2018-10-04 11:03] LABS: Platelet Count (auto) 40 10^3/uL (140-450)
[2018-10-04 11:05] LABS: Hematocrit 27.6 % (41.0-53.0); Hemoglobin 9.6 g/dL (13.5-17.5); Mean Corpuscular Hemoglobin 28.6 pg (28.0-32.0); Mean Corpuscular Hgb Conc. 34.7 g/dL (32.0-36.0); Mean Corpuscular Volume 82.5 fL (80.0-100.0); Red Blood Cells 3.34 10^6/uL (4.5-5.90); Red Cell Distribution Width 13.8 % (11.8-14.3)
[2018-10-04 11:07] LABS: White Blood Cell 0.8 10^3/uL (4.4-10.8)
[2018-10-04 11:08] LABS: Band Neutrophils % (manual) 0; Basophils % (manual) 0 (0.0-2.0); Blast Cells 0; Eosinophils % (manual) 0 (0-7); Metamyelocytes % 0; Myelocytes % 0; Promyelocytes % 0; Reactive Lymphocytes 0
--- NOTE | 2018-10-04 11:45 | NUR ---
I received a call from [place] at the [facility] transfer center, he is waiting for his MD to call him back to see if they will accept the patient.
[2018-10-04] MEDS: PIPERACILLIN-TAZO 4.5GM 100 ML IV SCH ×2 (12:00→18:50)
[2018-10-04] MEDS: ACCU-CHEK COMFORT CURVE STRIP VI SCH ×3 (12:10→22:43)
[2018-10-04] MEDS: InsuLIN REG 1unit/0.01ml Soln (100units/ml) SC SCH ×3 (12:11→22:44)
[2018-10-04 12:18] LABS: Lymphocytes % (manual) 97 (10.0-50.0); Monocytes % (manual) 1 (0-12)
--- NOTE | 2018-10-04 14:41 | NUR ---
I spoke with Kuldip at the [facility] transfer center [phone], he said they are accepting this patient under Dr. Fara Ferguson, they are just waiting for a bed assignment. [facility] remains on will call.
--- NOTE | 2018-10-04 14:45 | NUR ---
I spoke with patient's nurse Kay about the status of the transfer-I let her know that [facility] is on will call-I asked her to make sure the chart is copied and all radiology procedures placed on a disc in preparation for the transfer.
--- NOTE | 2018-10-04 21:35 | NUR ---
I SPOKE WITH IVAN A PAGE TECHNICIAN AT [facility] AND I WAS GIVEN A BED ROOM NUMBER OF [id number]. WILL CALL TO GIVE REPORT.
--- NOTE | 2018-10-04 21:50 | NUR ---
CALLED [facility] AND SET UP TRANSPORT. THEY STATED THAT PICKUP TIME WILL BE 2 HOURS AND IF IT WILL BE LONGER THAN THAT THEY WILL NOTIFY ME.
--- NOTE | 2018-10-04 21:55 | NUR ---
CALLED [facility] AT [phone] AND GAVE REPORT TO ALYCIA. ACCEPTING DOCTOR IS DR. BESS GOING TO ROOM [id number].
--- NOTE | 2018-10-04 23:17 | NUR ---
PATIENT WAS PICKED UP BY [facility]. HE TOOK ALL HIS BELONGINGS WITH HIM. HIS IV WAS LEFT IN DUE TO TRANSFER STATUS TO [facility]. NO TELEMETRY BOX WAS RETRIEVED BECAUSE HE WAS A MED SURG PATIENT.
== END 2018-10-04 23:36 | disposition short-term general hospital (02) | DRG 660 ==
LOC: ER 16:54 → OVERFLOW 16:55 → EAST 22:18
PROVIDERS: ADMIT Nurse Practitioner Family; ATTEND Internal Medicine
PROC: 30233R1 Transfusion of Nonautologous Platelets into Peripheral Vein, Percutaneous Approach (ICD-10-PCS; principal; 2018-10-03)
PROC: 30233N1 Transfusion of Nonautologous Red Blood Cells into Peripheral Vein, Percutaneous Approach (ICD-10-PCS; 2018-10-03)
DX: D61.818 Other pancytopenia (principal); E43 Unspecified severe protein-calorie malnutrition; C92.00 Acute myeloblastic leukemia, not having achieved remission; D70.9 Neutropenia, unspecified; R50.81 Fever presenting with conditions classified elsewhere; I10 Essential (primary) hypertension; E11.9 Type 2 diabetes mellitus without complications; E78.5 Hyperlipidemia, unspecified; Z79.84 Long term (current) use of oral hypoglycemic drugs; Z82.49 Family history of ischemic heart disease and other diseases of the circulatory system; Z83.3 Family history of diabetes mellitus; Z88.8 Allergy status to other drugs, medicaments and biological substances
CPT/HCPCS: 36415; 71045; 80048; 80053; 80202; 81001; 82565; 82962; 83036; 83735; 85007; 85025; 85027; 86850; 86900; 86901; 86920; 87040; 87081; 94761; G0378; J1447; J1815; J2405; J2543

== ENCOUNTER 2018-10-21 14:43 | Inpatient (IN) | payer MEDICAID ==
[~2018-10-21] VITALS: Ht 165.1 cm; Wt 99.5 kg
[~2018-10-21 14:43] MED LIST changes: +ALLO-52 PO; +DOCU100T15 PO; +FLUC200T50 PO; -GLIP5TAB12 PO; +HYDR-3682 PO; +LEVO500T21 PO; +OXYC325T14 PO; -PANT40TA2 PO; +PRO10T PO; +[UNRECOGNIZED DRUG - CODE] IV
[2018-10-21] MEDS ORDERED: ACETAMINOPHEN 325 MG TAB PO ONE ×2 (14:55→15:00)
[2018-10-21] MEDS ORDERED: cefTRIAXone SOD 1,000 MG VL IM ONE (17:30)
[2018-10-21 18:27] LABS: Hemoglobin 8.1 g/dL (13.5-17.5)
[2018-10-21 18:30] LABS: Hematocrit 22.8 % (41.0-53.0); Mean Corpuscular Hemoglobin 29.2 pg (28.0-32.0); Mean Corpuscular Hgb Conc. 35.4 g/dL (32.0-36.0); Mean Corpuscular Volume 82.6 fL (80.0-100.0); Red Blood Cells 2.76 10^6/uL (4.5-5.90); Red Cell Distribution Width 13.4 % (11.8-14.3)
[2018-10-21 18:33] LABS: Platelet Count (auto) 3 10^3/uL (140-450); White Blood Cell 0.7 10^3/uL (4.4-10.8)
[2018-10-21 18:34] LABS: Band Neutrophils % (manual) 0; Basophils % (manual) 0 (0.0-2.0); Blast Cells 0; Eosinophils % (manual) 0 (0-7); Metamyelocytes % 0; Myelocytes % 0; Promyelocytes % 0; Reactive Lymphocytes 0
[2018-10-21 18:42] LABS: Albumin 2.9 g/dL (3.4-5.0); BUN/Creatinine Ratio 12.6
[2018-10-21 18:45] LABS: Bilirubin, Total 0.6 mg/dL (0.2-1.0); Total Protein 7.9 g/dL (6.4-8.2)
[2018-10-21] MEDS ORDERED: ACETAMINOPHEN 500 MG TAB PO ONE (19:00)
[2018-10-21 19:42] LABS: Lymphocytes % (manual) 97 (10.0-50.0); Monocytes % (manual) 2 (0-12)
[2018-10-22] VITALS (10 sets, daily range): BP systolic 105–126; BP diastolic 52–71
[2018-10-22] MEDS ORDERED: ACETAMINOPHEN 500 MG TAB PO ONE (03:30)
[2018-10-22 03:55] LABS: Urine Bacteria NONE SEEN /hpf (None Seen); Urine Blood 2+ /uL (Negative); Urine WBC 2 /hpf (0 - 3)
--- NOTE | 2018-10-22 04:48 | NUR ---
Report/ endorsement received from ER nurse/ Geremias GAMEZ with instruction not to administer FFP when patient gets on MS floor. Per Geremias GAMEZ, received verbal instruction from MD not to administer.
--- NOTE | 2018-10-22 05:25 | NUR ---
MS admit from ER SIMI SAMUELS admitted to tele/MS after hand off tool received. Patient oriented to primary RN, unit, room, bed, and unit policies regarding patient care and visiting hours. Patient weighed by bedscale and encouraged to call if they need something. All questions and concerns addressed, patient verbalized understanding.
--- NOTE | 2018-10-22 05:26 | NUR ---
Informed VERA Archuleta FFP order still active at this time, per Geremias, not to administer. Charge nurse made aware.
[2018-10-22] MEDS ORDERED: ONDANSETRON HCL 4 MG/2 ML VIAL IV PRN (05:45)
[2018-10-22] MEDS ORDERED: DEXTROSE (50%) 50ML SYRG IV PRN (05:45)
[2018-10-22] MEDS ORDERED: HYDROcodone-ACET 5/325MG TAB PO PRN (05:45)
[2018-10-22] MEDS ORDERED: LACTULOSE 20Gm/30ML SOLN PO PRN (05:45)
--- NOTE | 2018-10-22 06:22 | NUR ---
PAGED ACCREDITATION COORDINATOR TO CLARIFY FFP ACTIVE ORDER. AWAITING CALL BACK.
[2018-10-22] MEDS: NYSTATIN (MOUTH-THROAT) 500,000 UNITS/5 ML SUSP MT SCH ×4 (06:42→23:14)
[2018-10-22] MEDS: PANTOPRAZOLE 40 MG TAB PO SCH (06:42)
[2018-10-22] MEDS: InsuLIN REG 1unit/0.01ml Soln (100units/ml) SC SCH ×4 (06:43→22:00)
[2018-10-22] MEDS: ACCU-CHEK COMFORT CURVE STRIP VI SCH ×4 (06:43→22:00)
--- NOTE | 2018-10-22 06:44 | NUR ---
[facility] SWAB SPECIMEN OBTAINED SENT TO LAB VIA BULLET.
--- NOTE | 2018-10-22 07:26 | NUR ---
Opening Shift Note Assumed care of patient, awake, alert and oriented. No S/S of distress/SOB. Pt denies having any pain at this time. Bed in lowest and locked position with side rails up x2 and call light within reach. Instructed on POC and to call for assist PRN, will continue to monitor for changes Q1hr and PRN.
[2018-10-22] MEDS ORDERED: LEVOFLOXACIN 500MG 100 ML IV SCH (08:00)
[2018-10-22] MEDS ORDERED: VANCOMYCIN PER PHARMACY 0 MG IV SCH (08:15)
--- NOTE | 2018-10-22 08:30 | NUR ---
SPOKE TO DR. BARTHOLOMEW. PER DO NOT ADMINISTER FROZEN PLASMA.
[2018-10-22 08:46] LABS: Hematocrit 20.9 % (41.0-53.0); Hemoglobin 7.4 g/dL (13.5-17.5); Mean Corpuscular Hemoglobin 29.6 pg (28.0-32.0); Mean Corpuscular Hgb Conc. 35.4 g/dL (32.0-36.0); Mean Corpuscular Volume 83.6 fL (80.0-100.0); Platelet Count (auto) 42 10^3/uL (140-450); Red Cell Distribution Width 13.5 % (11.8-14.3)
[2018-10-22 08:57] LABS: White Blood Cell 0.5 10^3/uL (4.4-10.8)
--- NOTE | 2018-10-22 08:57 | NUR ---
RECEIVED CALL FROM ProfindDONNA. CRITICAL LAB VALUE WBC OF 0.5. WILL NOTIFY MD AND INITIATE PROTOCOL.
[2018-10-22 08:59] LABS: Band Neutrophils % (manual) 0; Basophils % (manual) 0 (0.0-2.0); Blast Cells 0; Eosinophils % (manual) 0 (0-7); Metamyelocytes % 0; Monocytes % (manual) 0 (0-12); Myelocytes % 0; Promyelocytes % 0
--- NOTE | 2018-10-22 09:00 | NUR ---
MD BARTHOLOMEW NOTIFIED OF PT WBC CRITICAL LAB VALUE OF 0.5. AWARE. NO NEW ORDERS AT THIS TIME.
[2018-10-22 09:19] LABS: Albumin 2.4 g/dL (3.4-5.0); BUN/Creatinine Ratio 10.3; Calcium 8.4 mg/dL (8.5-10.1); Magnesium 2.2 mg/dL (1.6-2.6); Potassium 3.7 mmol/L (3.5-5.1)
[2018-10-22 09:22] LABS: Bilirubin, Total 0.5 mg/dL (0.2-1.0); Total Protein 6.9 g/dL (6.4-8.2)
[2018-10-22] MEDS: FLUCONAZOLE 100 MG TAB PO SCH (09:45)
[2018-10-22] MEDS: PIPERACILLIN-TAZO 4.5GM 100 ML IV SCH ×3 (09:45→21:00)
[2018-10-22] MEDS: ACYCLOVIR 400 MG TAB PO SCH (09:45)
[2018-10-22 09:52] LABS: Lymphocytes % (manual) 98 (10.0-50.0); Reactive Lymphocytes 2
[2018-10-22] MEDS: VANCOMYCIN 1GM/250ML 250 ML IV SCH (13:24)
[2018-10-22] MEDS: ACETAMINOPHEN 325 MG TAB PO PRN (15:51)
--- NOTE | 2018-10-22 16:05 | NUR ---
DR. CHUA AT BEDSIDE. RECOMMENDS TO TRANSFER PT TO [facility].
--- NOTE | 2018-10-22 16:19 | NUR ---
CALLED AND SPOKE TO DR. BARTHOLOMEW REGARDING DR. ABEL RECOMMENDATIONS FOR TRANSFERRING THE PT TO [facility]. MD NOTIFIED AND NEW ORDERS RECEIVED, READ BACK AND VERIFIED.
--- NOTE | 2018-10-22 16:20 | NUR ---
PAGED GLASS INSPECTOR SOCIAL SERVICEJESSICA. AWAITING CALL BACK.
--- NOTE | 2018-10-22 16:25 | NUR ---
RECEIVED CALL BACK FROM S/SJESSICA. JESSICA AWARE THAT THERE IS A REQUEST TO TRANSFER THE PT TO [facility].
--- NOTE | 2018-10-22 16:31 | NUR ---
CALL RECEIVED FROM S/SJESSICA. S/S REQUESTED TO FAX PATIENT INFORMATION TO [facility].
--- NOTE | 2018-10-22 16:40 | NUR ---
FAXED PATIENT INFORMATION TO [facility]. FAX RECEIPT IN PT CHART.
--- NOTE | 2018-10-22 16:45 | NUR ---
call centre supervisor-I received a page from nurse العلي letting me know that this patient has an order to transfer to [facility] (where he has been receiving leukemia treatment)-nurse العلي to fax clinical information/order to [facility] [phone]. I called [facility] and was unable to get a hold of lining caser for authorization.
--- NOTE | 2018-10-22 17:26 | NUR ---
[facility]
--- NOTE | 2018-10-22 18:30 | NUR ---
RECEIVED CALL FROM LORENZA FROM [place]. ACCORDING TO LORENZA THE PT CAN NOT BE ACCEPTED DUE TO THE LACK OF AVAILABILITY AT [place].
--- NOTE | 2018-10-22 18:37 | NUR ---
ATTEMPT TO PAGE AND NOTIFY S/S ABOUT TRANSFER STATUS. ACCORDING TO PBX, S/S CAN NOT BE PAGED PASSED 1700. WILL ENDORSE FOR NOTIFICATION IN THE AM.
[2018-10-23] VITALS (16 sets, daily range): BP systolic 110–139; BP diastolic 58–78
[2018-10-23] MEDS: VANCOMYCIN 1GM/250ML 250 ML IV SCH ×2 (00:38→20:15)
[2018-10-23] MEDS: PIPERACILLIN-TAZO 4.5GM 100 ML IV SCH ×4 (03:14→21:20)
[2018-10-23] MEDS: PANTOPRAZOLE 40 MG TAB PO SCH (05:25)
[2018-10-23] MEDS: NYSTATIN (MOUTH-THROAT) 500,000 UNITS/5 ML SUSP MT SCH ×4 (05:25→21:20)
[2018-10-23] MEDS: ACCU-CHEK COMFORT CURVE STRIP VI SCH ×4 (06:47→22:31)
[2018-10-23] MEDS: InsuLIN REG 1unit/0.01ml Soln (100units/ml) SC SCH ×4 (06:47→22:31)
--- NOTE | 2018-10-23 07:26 | NUR ---
ENDORSED CARE TO NIGHT MARICRIS. VERA GAMEZ AWARE OF CURRENT PLATELET TRANSFUSION. Addendum: 10/23/18 at 2033 by ASHLEY MCKEON RN RN INCORRECT INPUT TIME. CORRECT TIME 1925
--- NOTE | 2018-10-23 07:30 | NUR ---
Opening Shift Note Assumed care of patient, awake, alert and oriented X4. No S/S of distress/SOB. Pt denies having any pain at this time. Bed in lowest and locked position with side rails up x2 and call light within reach. Instructed on POC and to call for assist PRN, will continue to monitor for changes Q1hr and PRN.
[2018-10-23] MEDS: ACETAMINOPHEN 325 MG TAB PO PRN (07:51)
[2018-10-23 08:19] LABS: Hemoglobin 7.7 g/dL (13.5-17.5); Red Blood Cells 2.65 10^6/uL (4.5-5.90); Red Cell Distribution Width 13.8 % (11.8-14.3)
[2018-10-23 08:22] LABS: Mean Corpuscular Hemoglobin 29.1 pg (28.0-32.0); Mean Corpuscular Hgb Conc. 34.9 g/dL (32.0-36.0); Mean Corpuscular Volume 83.3 fL (80.0-100.0)
[2018-10-23 08:34] LABS: Platelet Count (auto) 19 10^3/uL (140-450); White Blood Cell 0.7 10^3/uL (4.4-10.8)
--- NOTE | 2018-10-23 08:34 | NUR ---
RECEIVED CALL FROM CHAR FILTER OPERATOR HELPERLUCAS THOMPSON. ACCORDING TO DONNA PT HAS CRITICAL LABS OF WBC 0.7 AND PLATELETS OF 19. WILL NOTIFY MD AND INITIATE PROTOCOL.
[2018-10-23 08:35] LABS: Band Neutrophils % (manual) 0; Basophils % (manual) 0 (0.0-2.0); Blast Cells 0; Eosinophils % (manual) 0 (0-7); Metamyelocytes % 0; Monocytes % (manual) 0 (0-12); Myelocytes % 0; Promyelocytes % 0
--- NOTE | 2018-10-23 08:35 | NUR ---
PAGED DR. BARTHOLOMEW REGARDING PT CRITICAL LAB VALUES. AWAITING CALL BACK.
[2018-10-23 08:42] LABS: Albumin 2.2 g/dL (3.4-5.0); Calcium 8.5 mg/dL (8.5-10.1); Potassium 3.5 mmol/L (3.5-5.1)
[2018-10-23 08:47] LABS: BUN/Creatinine Ratio 9.4; Bilirubin, Total 0.5 mg/dL (0.2-1.0); Total Protein 6.7 g/dL (6.4-8.2)
[2018-10-23] MEDS: ACYCLOVIR 400 MG TAB PO SCH (08:57)
[2018-10-23] MEDS: FLUCONAZOLE 100 MG TAB PO SCH (08:57)
--- NOTE | 2018-10-23 09:00 | NUR ---
SPOKE TO DR. BARTHOLOMEW. AWARE OF PT CRITICAL LAB VALUES. NO NEW ORDERS AT THIS TIME.
[2018-10-23 09:14] LABS: % Iron Saturation 88.8 % (20-55)
[2018-10-23 09:19] LABS: Lymphocytes % (manual) 96 (10.0-50.0); Reactive Lymphocytes 1
--- NOTE | 2018-10-23 09:30 | NUR ---
SPOKE TO DR. BARTHOLOMEW. NEW ORDERS RECEIVED, READ BACK AND VERIFIED.
--- NOTE | 2018-10-23 09:45 | NUR ---
SPOKE TO HATCHERY SUPERVISOR S/S AND UPDATED THEM ON PT TRANSFER STATUS TO [facility].
[2018-10-23] MEDS ORDERED: VANCOMYCIN 1GM/250ML 250 ML IV SCH (10:00)
[2018-10-23] MEDS ORDERED: VANCOMYCIN 1GM/250ML 250 ML IV ONE (12:30)
--- NOTE | 2018-10-23 13:30 | NUR ---
IV insertion IV access obtained, via clean sterile technique by inserting 20 gauge catheter at LEFT FOREARM after 1 attempt(s). IV secured properly. No trauma to site. Patient tolerated well.
--- NOTE | 2018-10-23 13:35 | NUR ---
IV removal RIGHT AC IV DC'd with clean sterile technique, catheter fully intact. Pressure dressing applied to site. Patient tolerated well.
--- NOTE | 2018-10-23 14:00 | NUR ---
RBC TRANSFUSION BEGAN TRANSFUSION OF PRBC. VITALS STABLE WITH TEMPERATURE OF 98.4, HR72, RESPIRATIONS 18, OXYGEN SATURATION 100% AND B/P OF 120/72. PT DOES NOT HAVE ANY COMPLAINTS OF SOB, DISTRESS, ITCHINESS OR PAIN. CONSENTS VERIFIED AND BLOOD VERIFIED WITH SECONDARY RN.
--- NOTE | 2018-10-23 17:44 | NUR ---
RBC TRANSFUSION ENDED TRANSFUSION OF PRBC. VITALS STABLE WITH TEMPERATURE OF 100.0, HR 79, RESPIRATIONS 18, OXYGEN SATURATION 99% AND B/P OF 123/67. PT DOES NOT HAVE ANY COMPLAINTS OF SOB, DISTRESS, ITCHINESS OR PAIN AT THIS TIME. WILL CONTINUE TO MONITOR.
--- NOTE | 2018-10-23 18:25 | NUR ---
PLATELET TRANSFUSION BEGAN TRANSFUSION OF PLATELETS. VITALS STABLE WITH TEMPERATURE OF 100.0F, HR 79, RESPIRATIONS 18, OXYGEN SATURATION 99% AND B/P OF 123/67. PT DOES NOT HAVE ANY COMPLAINTS OF SOB, DISTRESS, ITCHINESS OR PAIN. CONSENTS VERIFIED AND BLOOD VERIFIED WITH SECONDARY RN.
--- NOTE | 2018-10-23 19:26 | NUR ---
ENDORSED CARE TO NIGHT RNJOSIE. RN AWARE OF CURRENT PLATELET TRANSFUSION.
--- NOTE | 2018-10-23 19:50 | NUR ---
ASSUMED CARE, PT. AWAKE, BT INFUSING WELL, NO C/PAIN. NO SOB.
--- NOTE | 2018-10-23 20:03 | NUR ---
BLOOD TRANSFUSION COMPLETED, V/S STABLE, NO BLOOD TRANSFUSION REACTION NOTED.
[2018-10-24] MEDS: PIPERACILLIN-TAZO 4.5GM 100 ML IV SCH ×3 (02:30→15:00)
[2018-10-24] MEDS: VANCOMYCIN 1GM/250ML 250 ML IV SCH ×2 (04:07→12:00)
[2018-10-24 05:00] VITALS: BP 112/68
[2018-10-24] MEDS: NYSTATIN (MOUTH-THROAT) 500,000 UNITS/5 ML SUSP MT SCH ×2 (06:01→12:00)
[2018-10-24] MEDS: PANTOPRAZOLE 40 MG TAB PO SCH (06:01)
[2018-10-24] MEDS: InsuLIN REG 1unit/0.01ml Soln (100units/ml) SC SCH ×3 (06:02→16:45)
[2018-10-24] MEDS: ACCU-CHEK COMFORT CURVE STRIP VI SCH ×3 (06:02→17:00)
[2018-10-24 07:35] LABS: Hemoglobin 8.8 g/dL (13.5-17.5); Red Cell Distribution Width 13.5 % (11.8-14.3)
[2018-10-24 07:37] LABS: Hematocrit 25.1 % (41.0-53.0); Mean Corpuscular Hemoglobin 29.5 pg (28.0-32.0); Mean Corpuscular Hgb Conc. 34.9 g/dL (32.0-36.0); Mean Corpuscular Volume 84.5 fL (80.0-100.0); Platelet Count (auto) 66 10^3/uL (140-450); Red Blood Cells 2.97 10^6/uL (4.5-5.90)
[2018-10-24 07:45] LABS: White Blood Cell 0.6 10^3/uL (4.4-10.8)
[2018-10-24 07:46] LABS: Band Neutrophils % (manual) 0; Basophils % (manual) 0 (0.0-2.0); Blast Cells 0; Eosinophils % (manual) 0 (0-7); Metamyelocytes % 0; Monocytes % (manual) 0 (0-12); Myelocytes % 0; Promyelocytes % 0; Reactive Lymphocytes 0
--- NOTE | 2018-10-24 07:47 | NUR ---
Critical received - WBC Critical received - WBC 0.6. Notified by Jose Ramon laborer cheesem[employer]. Paged on-call hospitalist, Humaira Singh N.P., for Kyleigh primary RN. Patient is on neutropenic precautions.
[2018-10-24 08:05] LABS: Lymphocytes % (manual) 99 (10.0-50.0)
[2018-10-24 10:13] LABS: Ferritin > 1650.0 ng/mL (10-322)
[2018-10-24] MEDS: FLUCONAZOLE 100 MG TAB PO SCH (10:16)
[2018-10-24] MEDS: ACYCLOVIR 400 MG TAB PO SCH (10:17)
[2018-10-24 13:19] VITALS: BP 120/70
--- NOTE | 2018-10-24 13:50 | NUR ---
10-24-18 1350 hrs I called [facility] and spoke to Amanda and informed her to cancell transfer process since pt is being d/c home
--- NOTE | 2018-10-24 16:45 | NUR ---
Discharged Discharge instructions given as ordered. Encourage to follow up with PMD as instructed as well as appointment with Latrice Slaughter on 10/26/18. All questions and concerns addressed. Patient verbalized understanding. Per Dr Donnelly no new prescriptions at this time, continue all home medications. IVs removed with catheters intact, pressure dressings applied. Patient taken to vehicle with all personal belongings, accompanied by family member. No distress noted at time of departure.
== END 2018-10-24 16:45 | disposition home or self-care (01) | DRG 690 ==
LOC: ER 14:43 → OVERFLOW 14:44 → WEST WING 10-22 05:32
PROVIDERS: ADMIT Nurse Practitioner Family; ATTEND Internal Medicine
PROC: 30233N1 Transfusion of Nonautologous Red Blood Cells into Peripheral Vein, Percutaneous Approach (ICD-10-PCS; principal; 2018-10-22)
PROC: 30233R1 Transfusion of Nonautologous Platelets into Peripheral Vein, Percutaneous Approach (ICD-10-PCS; 2018-10-22)
DX: C92.00 Acute myeloblastic leukemia, not having achieved remission (principal); D61.818 Other pancytopenia; K12.0 Recurrent oral aphthae; E11.9 Type 2 diabetes mellitus without complications; E78.5 Hyperlipidemia, unspecified; I10 Essential (primary) hypertension; R50.81 Fever presenting with conditions classified elsewhere; Z79.4 Long term (current) use of insulin; Z79.899 Other long term (current) drug therapy; Z80.9 Family history of malignant neoplasm, unspecified; Z82.49 Family history of ischemic heart disease and other diseases of the circulatory system; Z83.3 Family history of diabetes mellitus; Z88.8 Allergy status to other drugs, medicaments and biological substances
CPT/HCPCS: 36415; 36430; 80053; 80202; 81001; 82607; 82728; 82746; 82962; 83540; 83550; 83735; 85007; 85027; 86850; 86900; 86901; 86920; 87040; 87070; 87081; 87880; 96372; G0378; J0696; J1815; J2543

== ENCOUNTER 2019-02-14 16:38 | Emergency (ER) | payer MEDICAID ==
[~2019-02-14] VITALS: Ht 165.1 cm; Wt 42.2 kg
[2019-02-14] MEDS ORDERED: SODIUM CHLORIDE 0.9% 1,000 ML IVB ONE (17:26)
[2019-02-14 17:37] LABS: Hematocrit 18.8 % (41.0-53.0); Mean Corpuscular Hemoglobin 29.7 pg (28.0-32.0); Mean Corpuscular Hgb Conc. 36.1 g/dL (32.0-36.0); Mean Corpuscular Volume 82.3 fL (80.0-100.0); Red Blood Cells 2.28 10^6/uL (4.5-5.90); Red Cell Distribution Width 12.4 % (11.8-14.3)
[2019-02-14 17:44] LABS: White Blood Cell 0.4 10^3/uL (4.4-10.8)
[2019-02-14 17:45] LABS: Hemoglobin 6.8 g/dL (13.5-17.5); Platelet Count (auto) 4 10^3/uL (140-450)
[2019-02-14 17:46] LABS: Band Neutrophils % (manual) 0; Basophils % (manual) 0 (0.0-2.0); Blast Cells 0; Metamyelocytes % 0; Myelocytes % 0; Promyelocytes % 0; Reactive Lymphocytes 0
[2019-02-14 17:52] LABS: Albumin 3.1 g/dL (3.4-5.0); BUN/Creatinine Ratio 18.8; Calcium 8.4 mg/dL (8.5-10.1); Potassium 3.9 mmol/L (3.5-5.1)
[2019-02-14 17:55] LABS: Bilirubin, Total 0.6 mg/dL (0.2-1.0); INR 1.02 (0.9-1.15); Partial Thromboplastin Time 33.8 sec (23.64-32.05); Total Protein 7.2 g/dL (6.4-8.2)
[2019-02-14 18:58] LABS: Eosinophils % (manual) 0.2 (0-7); Lymphocytes % (manual) 93.4 (10.0-50.0); Monocytes % (manual) 2.2 (0-12)
[2019-02-14] MEDS ORDERED: ACETAMINOPHEN 325 MG TAB PO ONE (20:00)
[2019-02-14 20:15] VITALS: BP 108/57
[2019-02-14 21:15] VITALS: BP 104/64
[2019-02-14 22:50] VITALS: BP 100/52
[2019-02-15 00:20] VITALS: BP 112/61
== END 2019-02-15 01:53 | disposition home or self-care (01) ==
LOC: ER 16:38
DX: D64.9 Anemia, unspecified (principal); D69.6 Thrombocytopenia, unspecified; C95.90 Leukemia, unspecified not having achieved remission; E11.9 Type 2 diabetes mellitus without complications; E78.5 Hyperlipidemia, unspecified; I10 Essential (primary) hypertension; Z88.6 Allergy status to analgesic agent; Z79.899 Other long term (current) drug therapy
CPT/HCPCS: 36415; 36430; 80053; 83735; 85007; 85027; 85610; 85730; 86850; 86900; 86901; 86920; 99285; P9016; P9035